=== PATIENT | male | born 1950 | race Caucasian/White ===

== ENCOUNTER 2019-03-26 05:41 | Day surgery (SDC) | payer OTHER ==
[2019-03-26] MEDS ORDERED: LR 1,000 ML IV ONE (06:01)
[2019-03-26] MEDS ORDERED: BUPIVACAINE/EPI 0.5% 30 ML SDV ONE (06:42)
[2019-03-26] MEDS ORDERED: MIDAZOLAM 2 MG/2 ML VIAL IVP ONE (06:52)
--- NOTE | 2019-03-26 06:52 | PDANEPAE ---
ANE History of Present Illness B laparoscopic IH repair ANE Past Medical History - Cardiovascular History Hx Hypertension: No Hx Arrhythmias: No Hx Chest Pain: No Hx Coronary Artery / Peripheral Vascular Disease: No Hx CHF / Valvular Disease: No Hx Palpitations: No - Pulmonary History Hx COPD: No Hx Asthma/Reactive Airway Disease: No Hx Recent Upper Respiratory Infection: No Hx Oxygen in Use at Home: No Hx Sleep Apnea: Yes Sleep Apnea Screening Result - Last Documented: Positive - Neurologic History Hx Cerebrovascular Accident: No Hx Seizures: No Hx Dementia: No - Endocrine History Hx Diabetes: No - Renal History Hx Renal Disorders: No - Liver History Hx Hepatic Disorders: No - Neurological & Psychiatric Hx Hx Neurological and Psychiatric Disorders: No - Cancer History Hx Cancer: No - Congenital Disorder History Hx Congenital Disorders: No - GI History Hx Gastrointestinal Disorders: No - Other Health History Other Health History: NEG - Chronic Pain History Chronic Pain: No - Surgical History Prior Surgeries: DENTAL ANE Review of Systems Review of systems is: negative Review of Systems: - Exercise capacity METS (RN): 5 METS ANE Patient History - Allergies Allergies/Adverse Reactions: codeine [Codeine] Allergy (Verified 03/26/19 06:10) violent nausesa - Home Medications Home medications: home medication list seen and reviewed Home Medications: Herbals/Supplements -Info Only 03/22/19 [Last Taken 03/22/19] - NPO status NPO Since - Liquids (Date): 03/26/19 NPO Since - Liquids (Time): 03:30 NPO Since - Solids (Date): 03/25/19 NPO Since - Solids (Time): 23:00 - Anes Hx Anes Hx: no prior problems - Smoking Hx Smoking Status: Never smoked - Family Anes Hx Family Hx Anesthesia Complications: FATHER ADVERSE RX 30 YRS AGO RESULTING IN HOSPITALIZATION - HAD OTHER HEALTH ISSUES ANE Labs/Vital Signs - Vital Signs Vital Signs: reviewed preoperatively; see RN documention for details Blood Pressure: 138/85 Heart Rate: 70 Respiratory Rate: 18 O2 Sat (%): 97 Height: 172.09 cm Weight: 70.307 kg ANE Physical Exam - Airway Neck exam: FROM Mallampati Score: Class 2 Mouth exam: normal dental/mouth exam - Pulmonary Pulmonary: no respiratory distress - Cardiovascular Cardiovascular: regular rate and rhythym - ASA Status ASA Status: II ANE Anesthesia Plan Anesthesia Plan: general endotracheal anesthesia
--- NOTE | 2019-03-26 07:06 | PDHPUP ---
History & Physical Update H&P update statement: This history and physical update is based on an assessment of the patient which was completed after admission or registration (within 24 hours), but prior to the surgery/procedure. H&P update: H&P reviewed & patient examined, no change in patient's condition since H&P completed
--- NOTE | 2019-03-26 07:08 | POSTOPPROG ---
Post Op Note Date of Operation: 03/26/19 Surgeon: Kapil Quiroz Slab Off Mill Tender: Edilma Almeida Anesthesiologist: Brayden Flores Anesthesia: GET(General Endotracheal) Pre-op Diagnosis: BIH Post-op Diagnosis: Same Procedure: Lap BIH Findings: bilateral direct defects Inf/Abcess present in the surg proc area at time of surgery?: No EBL: Minimal Specimen(s): none
[2019-03-26] MEDS ORDERED: ONDANSETRON 4 MG/2 ML VIAL ONE (07:14)
[2019-03-26] MEDS ORDERED: DEXAMETHASONE 4 MG/ML VIAL ONE (07:14)
[2019-03-26] MEDS ORDERED: LIDOCAINE 2% 100 MG/5 ML SYR ONE (07:14)
[2019-03-26] MEDS ORDERED: fentaNYL 100 MCG/2 ML INJ ONE (07:14)
[2019-03-26] MEDS ORDERED: PROPOFOL 200 MG/20 ML VIAL ONE (07:14)
[2019-03-26] MEDS ORDERED: ROCURONIUM 50 MG/5 ML VIAL ONE (07:17)
[2019-03-26] MEDS ORDERED: KETOROLAC 30 MG/1 ML SDV ONE (07:29)
[2019-03-26] MEDS ORDERED: ePHEDrine SULFATE 25 MG/5 ML SYR ONE (07:49)
[2019-03-26] MEDS ORDERED: GLYCOPYRROLATE 0.2 MG/1 ML VIAL ONE ×2 (07:55)
[2019-03-26] MEDS ORDERED: NEOSTIGMINE METHYLSULFATE 10 MG/10 ML MDV ONE (07:55)
[2019-03-26] MEDS ORDERED: fentaNYL 100 MCG/2 ML INJ IVP PRN (08:13)
[2019-03-26] MEDS ORDERED: HYDROCODONE/APAP 5/325 TAB PO PRN (08:13)
[2019-03-26] MEDS ORDERED: DEXAMETHASONE 4 MG/ML VIAL IVP PRN (08:13)
[2019-03-26] MEDS ORDERED: NALOXONE HCL 0.4 MG/ML INJ IVP PRN (08:13)
[2019-03-26] MEDS ORDERED: HYDROmorphONE/DILAUDID 1 MG/ML INJ IVP PRN (08:13)
[2019-03-26] MEDS ORDERED: oxyCODONE IR 5 MG TAB PO PRN (08:13)
[2019-03-26] MEDS ORDERED: PROMETHAZINE HCL 25 MG/ML INJ IVP PRN (08:13)
[2019-03-26] MEDS ORDERED: ONDANSETRON 4 MG/2 ML VIAL IVP PRN (08:13)
[2019-03-26] MEDS ORDERED: MEPERIDINE 25 MG/0.5 ML AMP IVP PRN (08:13)
--- NOTE | 2019-03-26 08:15 | POSTANESTH ---
Post Anesthetic Evaluation Cardiovascular Status: Normal, Stable, Similar to Pre-Op Cond Respiratory Status: Similar to Pre-op Cond. Level of Consciousness/Mental Status: Can Participate in Eval, Mildly Sleepy, Arousable Pain Control: Adequate, Prn Tx Ordered Nausea/Vomiting Control: Adequate, Prn Tx Ordered Complications Possibly Related to Anesthesia: None Noted
[2019-03-26 09:14] VITALS: BP 124/65
--- NOTE | 2019-03-26 09:57 | GOP ---
[f rep st] OPERATIVE REPORT DATE OF OPERATION: 03/26/2019 SURGEON: Kapil Quiroz MD MANAGER BUILDING: Edilma Almeida PA-C. ANESTHESIA: General. ANESTHESIOLOGIST: Dr. Flores. PREOPERATIVE DIAGNOSIS: Bilateral inguinal hernia. POSTOPERATIVE DIAGNOSIS: Bilateral inguinal hernia. PROCEDURE PERFORMED: Laparoscopic bilateral hernia repair. FINDINGS: See below. INDICATIONS: 68-year-old male with symptomatic bilateral hernias. He is undergoing surgical repair at this time. The risks and benefits were explained including bleeding, infection, open conversion, and bladder injury, as well as recurrence. All questions were answered. He desires to proceed. A surgical dressing maker is standard, necessary, and customary for the safe performance of this procedure. DESCRIPTION OF PROCEDURE: General anesthesia was induced. The abdomen was pre- injected with 0.5% Marcaine with epinephrine. The left anterior rectus sheath fascia was opened. The preperitoneal space was developed with a balloon dissector and trocar until the bladder and pubic arch were identified. A structured balloon was inserted, followed by two 5 mm lower midline ports. Bilateral spermatic cords were circumferentially encompassed. There was evidence of small direct bilateral sacs. The adherent peritoneum and visceral contents were reduced from the sac and allowed to fall back toward the abdominal space. There was no evidence of an indirect sac. Large 3D Marlex mesh patches were inserted and secured to Ricki's ligament and the anterior abdominal wall. Complete coverage of the entire myopectineal surface was obtained. Satisfactory hemostasis was assured. The trocars were removed under direct visualization. The anterior rectus sheath fascia was closed with a running Vicryl suture. The wounds were closed with Monocryl suture followed by Dermabond. The patient was taken to recovery uneventfully. /[id number]/MODL MTDD
== END 2019-03-26 09:20 | disposition home or self-care (01) ==
LOC: FSGY 05:41
PROVIDERS: ATTEND Surgery
PROC: 0YUA4JZ Supplement Bilateral Inguinal Region with Synthetic Substitute, Percutaneous Endoscopic Approach (ICD-10-PCS; principal; 2019-03-26 07:15)
DX: K40.20 Bilateral inguinal hernia, without obstruction or gangrene, not specified as recurrent (principal); G47.33 Obstructive sleep apnea (adult) (pediatric)
CPT/HCPCS: C1727; C1781; J1100; J1885; J2001; J2250; J2405; J2704; J3010